=== PATIENT | female | born 1980 | race Caucasian/White ===

== ENCOUNTER → 2018-07-29 | Outpatient (CLI) | payer OTHER ==
--- NOTE | 2018-07-30 11:21 | MM ---
Reason for exam: clinical finding. Last mammogram was performed 3 years and 9 months ago. History: Family history of breast cancer in maternal aunt at age 48, breast cancer in aunt at age 50, and breast cancer in aunt at age 60. Benign excisional biopsy of the left breast, 1995. Indicated problem(s): lump or thickening in the left breast. Physical Findings: Nurse did not find any significant physical abnormalities on exam. MG 3D Diag Mammo W/Cad RAZIA Bilateral CC and MLO view(s) were taken. Prior study comparison: October 19, 2014, bilateral MG screening mammo w CAD. March 25, 2013, CAD bilateral diagnostic mammogram. The breast tissue is heterogeneously dense. This may lower the sensitivity of mammography. There is no discrete abnormality. These results were verbally communicated with the patient and result sheet given to the patient on 07/29/18. ASSESSMENT: Negative, BI-RAD 1 RECOMMENDATION: Routine screening mammogram of both breasts in 1 year.
== END | disposition home or self-care (01) ==
LOC: RADMAMWWP 13:47
PROVIDERS: ATTEND Obstetrics & Gynecology
DX: N64.4 Mastodynia (principal); N63.0 Unspecified lump in unspecified breast
CPT/HCPCS: 77066; G0279; 77062

== ENCOUNTER → 2018-10-19 | Outpatient (CLI) | payer OTHER ==
--- NOTE | 2018-10-19 12:24 | CONS ---
CONSULTATION CONSULTATION NOTE: Sleep apnea. 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 The patient works in [employer] and [employer] in [place]. She has been feeling more fatigued over the years and she had become sleepy and it has been going on for the past 5 years. She is coming in for further investigation upon request of her primary care physician. Upon further discussion, the patient has a very irregular sleep-wake cycle. The patient works different shifts and she typically works 12 hour shifts, between 7 am and 7 pm and 11 am and 11 pm and 3 p.m. until 3 am. Her shifts vary and they are quite erratic and she takes the shifts as they come. This has affected her sleep quality to the point where the patient sometimes unable to generate more than 4-6 hours of sleep and she has become progressively more sleep insufficient. This has affected her mental health and she is feeling more withdrawn and somewhat anxious and depressed and the patient had seen her primary care physician and started on Wellbutrin approximately 2 months ago. No crying episodes. She does not feel quite sad and Wellbutrin has helped her with her symptoms of depression. She has gained weight in order of 25-30 pounds and the patient is concerned about the obstructive sleep apnea, in addition. She has been told to have some snoring, yet no witnessed apneas. No history of any falling asleep on the job or falling asleep while driving or performing the routine day-to-day activities. Her current [place] score is at 4. She denies waking up in the middle of the night for any reason. Denies having any grinding of the teeth. No restlessness of the lower extremities or any symptoms of restless legs syndrome. No reported nighttime panic attacks. She is having more and more difficulty with memory and concentration and she is feeling tired all the time. No other metabolic disease or disorders such as thyroid disease or any other chronic liver or kidney disease. No head trauma. No history of meningitis, no history of substance abuse. She drinks 1 or 2 cups of coffee in the morning. No history of alcoholism. PAST MEDICAL HISTORY: Depression. PAST SURGICAL HISTORY: Hysterectomy, pilonidal cyst removal, LEEP procedure, sinus surgery and D and C. DRUG ALLERGIES: MAGNESIUM SULFATE, CLINDAMYCIN, LEVAQUIN. OUTPATIENT MEDICATION: Include Wellbutrin XL 300 mg. SOCIAL HISTORY: The patient is a nonsmoker. No history of alcohol. No history of IV drugs. FAMILY HISTORY: Negative for sleep apnea. The patient has 2 kids at the age of 9 and 14. Diabetes mellitus runs in the family. His father and grandparents have diabetes mellitus type 2. REVIEW OF SYSTEMS: A 14-point review of system was done. Positive findings are mentioned in history of present illness. Denies choking or gasping for air in the middle of the night. No restlessness in the lower extremities. No heartburn, no sleep paralysis, no hallucinations, no cataplexy. No evidence of noted of any motor vehicle accident because of feeling drowsy or sleepy. No nighttime chest pain shortness of breath. Heartburn no nausea vomiting, or diarrhea. No dysuria, frequency or urgency. No grinding of the teeth. No claustrophobia, no sexual dysfunction. PHYSICAL EXAMINATION: BP is 117/71, pulse 78, respirations 14, temperature 98.9, saturation 96% on room air. Height is 5, 5, weight is 176, neck size 14 [place] score is 4, BMI is 29.2. GENERAL APPEARANCE: Calm comfortable, no acute distress. HEENT: Head is atraumatic, normocephalic. NECK: Supple. There is no JVD. No goiter. No neck masses. Mallampati class 2. LUNGS: Clear to auscultation. HEART: Sounds regular rate and rhythm. Normal S1, S2. No S3, S4. No murmurs. ABDOMEN: Soft, nontender. No organomegaly. EXTREMITIES: No edema. No cyanosis or clubbing. SKIN: Negative for any wounds or ulceration. IMPRESSION: 1. Insufficient sleep syndrome. Probably contributing to her chronic fatigue and sleepiness. Obstructive sleep apnea. is possible but felt to be less likely. 2. Poor sleep hygiene measures. 3. Chronic fatigue and some limited sleepiness with an [place] score of 4. 4. Irregular work shifts as discussed above in the history of present illness/swing shift work. 5. History of depression, currently on Wellbutrin. PLAN: Would investigate the patient's sleep quality further. Will set her up for a screening polysomnogram. Will rule out obstructive sleep apnea accordingly. Will decide if any treatment is needed from the sleep apnea standpoint as present. Meanwhile, she is to implement good sleep hygiene measures. She needs to regulate her work schedule trying to work regular schedules instead of swing shift. Continue Wellbutrin. Will continue to follow. MMODL / IJN: [id number] /
== END | disposition home or self-care (01) ==
CPT/HCPCS: 99211

== ENCOUNTER → 2019-01-06 | Outpatient (CLI) | payer OTHER ==
--- NOTE | 2019-01-06 11:40 | US ---
EXAMINATION TYPE: US thyroid st tissue head/neck DATE OF EXAM: 01/06/2019 COMPARISON: NONE CLINICAL HISTORY: E04.1 SINGLE THYROID NODULE. GLAND SIZE: Right Lobe: 5.9 x 1.7 x 1.7 cm Overall Parenchyma: homogenous Left Lobe: 5.3 x 1.6 x 1.5 cm Overall Parenchyma: homogeneous Isthmus Thickness: 0.1 cm NODULES RIGHT: # of nodules measured on right: 1 1. 1.3 X 0.6 x 0.9 cm isoechoic mixed nodule at the mid pole with well-defined margins. This nodul e is wider than tall and shows intranodular vascularity. No prior LEFT: # of nodules measured on left: 1 1. 1.1 X 0.5 x 1.0 cm isoechoic mixed nodule at the mid pole with well-defined margins. This nodul e is wider than tall and shows intranodular vascularity. No prior ISTHMUS: # of nodules measured in the isthmus: 0 Bilateral neck scanned, no evidence of lymphadenopathy. IMPRESSION: Enlarged thyroid gland with bilateral thyroid nodules measuring up to 1.3 cm on the right and 1.1 cm on the left. These do not yet meet criteria for fine-needle aspiration and follow-up thyr oid ultrasound in 12 months would be recommended.
[2019-01-06 11:59] LABS: T4, Free (Free Thyroxine) 0.98 ng/dL (0.78-2.19)
[2019-01-06 16:03] LABS: DHEA Sulfate 473.9 ug/dL (26.0-430.0); Estradiol 66.4 pg/mL; Follicle Stimulating Hormone 4.2 mIU/mL
== END | disposition home or self-care (01) ==
LOC: RADUSWWP 10:35
PROVIDERS: ATTEND Family Medicine
DX: E04.2 Nontoxic multinodular goiter (principal); R53.82 Chronic fatigue, unspecified
CPT/HCPCS: 36415; 76536; 82040; 82627; 82670; 83001; 83002; 84270; 84403; 84439; 84443

== ENCOUNTER → 2019-01-14 | Outpatient (CLI) | payer OTHER ==
--- NOTE | 2019-01-14 10:09 | US ---
EXAMINATION TYPE: US transvaginal DATE OF EXAM: 01/14/2019 COMPARISON: US 2010 CLINICAL HISTORY: E28.1 Androgen excess. TECHNIQUE: Transvaginal (TV). Date of LMP: hysterectomy 8 years ago EXAM MEASUREMENTS: Uterus: Surgically absent Endometrial Stripe: Surgically absent Right Ovary: 3.4 x 1.9 x 2.5 cm Left Ovary: 3.3 x 2.1 x 1.9 cm 1. Uterus: Surgically absent 2. Endometrium: Surgically absent 3. Right Ovary: wnl 4. Left Ovary: wnl 5. Bilateral Adnexa: wnl 6. Posterior cul-de-sac: wnl Ovaries within normal limits in size with scattered peripheral follicles. IMPRESSION: Posthysterectomy changes. No suspicious adnexal masses.
== END | disposition home or self-care (01) ==
LOC: RADUSWWP 09:43
PROVIDERS: ATTEND Family Medicine
DX: E28.1 Androgen excess (principal); Z90.710 Acquired absence of both cervix and uterus
CPT/HCPCS: 76830

== ENCOUNTER → 2019-01-14 | Outpatient (CLI) | payer OTHER | END | disposition home or self-care (01) | LOC: LABWHC1 09:32 | PROVIDERS: ATTEND Family Medicine | DX: E28.1 Androgen excess (principal) | CPT/HCPCS: 36415; 84146 ==

== ENCOUNTER → 2020-07-24 | Outpatient (CLI) | payer OTHER ==
--- NOTE | 2020-07-25 07:50 | US ---
EXAMINATION TYPE: US thyroid st tissue head/neck DATE OF EXAM: 07/24/2020 COMPARISON: US 01/06/2019 CLINICAL HISTORY: E04.2 Goiter. Difficulty swallowing is noted by patient GLAND SIZE: Right Lobe: 5.9 x 2.3 x 1.8 cm Overall Parenchyma: homogenous Left Lobe: 4.8 x 1.7 x 1.6 cm Overall Parenchyma: homogeneous Isthmus Thickness: 0.1 cm NODULES RIGHT: # of nodules measured on right: 3 1. 1.7 X 1.2 x 1.0 cm, mid pole, mixed cystic and solid, isoechoic nodule, which is wider than tall , with smooth margins, without echogenic foci. Prior size: 1.3 x 0.9 x 0.6 cm 2. 0.5 X 0.5 x 0.5 cm, lower medial, mixed cystic and solid, isoechoic nodule, which is wide as is tall, with smooth margins, without echogenic foci. Prior size: not seen 3. 0.5 X 0.6 x 0.4 cm, lower lateral, solid or almost completely solid, hypoechoic nodule, which is wider than tall, with smooth margins, without echogenic foci. Prior size: not seen LEFT: # of nodules measured on left: 2 1. 0.3 X 0.3 x 0.2 cm, upper pole, mixed cystic and solid, hypoechoic nodule, which is wider than t all, with smooth margins, with echogenic foci. Prior size: not seen 2. 1.1 X 1.0 x 0.6 cm, mid pole, mixed cystic and solid, isoechoic nodule, which is wider than kim l, with irregular or lobular margins, without echogenic foci. Prior size: 1.1 x 1.0 x 0.5 cm ISTHMUS: # of nodules measured in the isthmus: 0 Bilateral neck scanned: no evidence of lymphadenopathy. IMPRESSION: 1. No thyroid glandular enlargement. 2. Stable nonspecific thyroid nodules.
== END | disposition home or self-care (01) ==
LOC: RADUSWWP 16:48
PROVIDERS: ATTEND Family Medicine
DX: E04.2 Nontoxic multinodular goiter (principal)
CPT/HCPCS: 76536

== ENCOUNTER → 2023-01-08 | Outpatient (CLI) | payer BC ==
--- NOTE | 2023-01-08 13:59 | P.SLEEP ---
History of Present Illness DATE: 01/08/2023 CONSULTATION/NEW PATIENT EVALUATION HISTORY OF PRESENT ILLNESS/SLEEP-WAKE EVALUATION: 42-year-old lady had been ev aluated in the sleep center for possible obstructive sleep apnea hypopnea syndrome. SLEEP SCHEDULE: Usually sleep schedule 10 PM to 6 AM on weekdays and from 10 PM to 7 AM on weekend. FALLING ASLEEP: Patient does have problems sometimes with falling asleep, although no TV in bedroom. DURING SLEEP: Patient sleeps in different positions with snoring and awakenings from sleep 3 times with one episode of nocturia. No history of hypnogogical hallucinations, sleep paralysis, or cataplexy. DURING THE DAY/WAKE STATE: In the morning patient wake up tired. [place] sleepiness scale is 4. Usually patient doesn't take naps. PAST MEDICAL HISTORY: Hyperfunction of adrenal gland, thyroid nodules, history of depression, history of sinus problems. PAST SURGICAL HISTORY: Partial hysterectomy. MEDICATIONS: Aldactone 25 mg twice a day, metformin 500 mg twice a day, Wellbutrin 300 mg once a day. SOCIAL HISTORY: Negative for smoking, alcohol consumption occasional. FAMILY HISTORY: Diabetes, cancer. REVIEW OF SYSTEMS: Snoring, multiple awakenings from sleep. No fevers. No double vision. No recent chest pain. No shortness of breath. No abdominal pain. No bleeding episodes. No blood in urine. No seizure episodes. PHYSICAL EXAMINATION: GENERAL: A pleasant patient without any distress. VITAL SIGNS: BP 127/84, HR 83, RR 18, weight 204.0 pounds, height 5 foot 5 inches, body mass index 33.9. HEENT: PERRLA, EOMI. Evaluation of oropharynx showed tongue protrudes midline, low position of soft palate Mallampati 4. NECK: Supple. No JVD. Thyroid is not palpable. 15-3/4 inches in circumference. LUNGS: Clear to percussion and to auscultation. Good air exchange. No wheezing or rhonchi. HEART: S1, S2 regular. No murmurs, gallops or rubs. ABDOMEN: Soft and nontender. Bowel sounds are present. No organomegaly appreciated. EXTREMITIES: No clubbing or cyanosis. 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 Cranial nerves 2 to 7 intact. There is no fasciculation or atrophy noted. No focal deficits observed. ASSESSMENT: 1. Snoring, multiple awakenings from sleep, extremely low position of soft palate Mallampati 4. Obstructive sleep apnea hypopnea syndrome. 2. Mild obesity, BMI 33.9. 3. History of depression. 4. History of thyroid nodule. 5 history of adrenal hyperfunction. 6 . Status post partial hysterectomy. 7. Status post sinus surgery. PLAN: 1. Polysomnography for evaluation of patient's breathing during sleep. 2. Following plan after reading sleep study 3. No driving if feel . Patient is aware of civil and criminal liability for unsafe driving. 5. Sleep hygiene with regular sleep time for at least 7.5-8 hours. 6. Watching and losing weight. Thank you very much for referring this patient for consultation. Sincerely, Alex Winston MD, PhD, FAASM. Diplomat of [employer], Sleep Medicine Board by [employer] Manager [employer] [facility] [place] [facility] Note - Sleep Note Sleep Note: Temperature: Pulse Rate: Respiratory Rate: Blood Pressure: SpO2: Height: Weight: BMI: Neck Circumference:
== END ==
LOC: 3 N SLEEP 13:25
PROVIDERS: ATTEND Internal Medicine
DX: G47.33 Obstructive sleep apnea (adult) (pediatric) (principal); E66.9 Obesity, unspecified; F32.A Depression, unspecified; E27.8 Other specified disorders of adrenal gland; E04.1 Nontoxic single thyroid nodule; Z98.890 Other specified postprocedural states; Z68.33 Body mass index [BMI] 33.0-33.9, adult; Z90.711 Acquired absence of uterus with remaining cervical stump
CPT/HCPCS: 99211

== ENCOUNTER → 2023-03-10 | Outpatient (CLI) | payer BC ==
--- NOTE | 2023-03-11 12:19 | P.PCN ---
Description of Procedure: CLINICAL: A home sleep apnea test has been done for confirmation of possible obstructive sleep apnea-hypopnea syndrome. DESCRIPTION OF PROCEDURE: RESULTS: Recording time was 6 hours 51 minutes. Evaluation time was 6 hours 40 minutes. Evaluation time is sufficient for making conclusion about results of the test. Raw data of sleep recording has been reviewed and is adequate. Respiratory channel showed 7 apneas and 9 hypopneas. Apnea-hypopnea index was 2.4 per hour.. Pulse rate in the range between minimum 55, maximum 100, average 75 by computer calculation. Lowest desaturation was []%. IMPRESSION: 1. No significant respiratory abnormalities have been documented during the sleep study. 2. Snoring have been documented during the sleep study. Please see other impressions from consultation. PLAN: 1. I will see patient for follow-up visit to explain results of the test and recommendations. 2. Patient may consider evaluation by ear nose and throat physician for treatment of snoring. 3. Watching and losing weight. 4. Sleep hygiene with regular time in bed for at least 8 hours. 5. No driving if feeling any sleepiness. Thank you very much for allowing me to participate in the management of your patient. Sincerely, Alex Winston MD, PhD, FAASM Diplomat of [place] [employer] Sleep Medicine Board of [place] [employer] [facility] [place]
== END ==
LOC: 3 N SLEEP 16:46
PROVIDERS: ATTEND Internal Medicine
DX: G47.33 Obstructive sleep apnea (adult) (pediatric) (principal)

== ENCOUNTER 2024-07-29 10:30 | Emergency (ER) | payer BC ==
[2024-07-29 10:43] VITALS: RESP 16; TEMP 98.1
--- NOTE | 2024-07-29 11:40 | ED ---
Dizziness HPI - General Chief Complaint: Dizziness Stated Complaint: Dizziness Time Seen by Provider: 07/29/24 10:52 Source: patient, RN notes reviewed Mode of arrival: ambulatory Limitations: no limitations - History of Present Illness Initial Comments: This is a 44-year-old female who presents to the emergency department for dizziness. States that it has been ongoing for the last week. She went to [facility] when this first started. They did lab work and a CT scan of the brain as well as a chest x-ray which were all normal. They treated her for vertigo and she felt like symptoms improved to some extent while she was there. She was discharged with a prescription for Antivert. States that since going home symptoms have not gotten any better. She feels dizzy almost constantly, has blurry vision, and nausea. States that she is unable to work or drive as a result of her symptoms. She is still taking Antivert 4 times a day, but has not gotten any relief. She followed up with her PCP today who advised she come here for an MRI. MD Complaint: dizziness, difficulty walking - Related Data Home Medications Medication Instructions Recorded Confirmed Meclizine [Antivert] 25 mg PO QID 07/29/24 07/29/24 Ondansetron Odt [Zofran Odt] 4 mg PO Q8HR PRN 07/29/24 07/29/24 Previous Rx's Medication Instructions Recorded Metoclopramide [Reglan] 10 mg PO Q6H PRN #30 tab 07/29/24 Scopolamine [Scopolamine 1 MG/72 1 patch TRANSDERM Q72H PRN #8 patch 07/29/24 HR patch] diazePAM [Valium] 5 mg PO TID PRN 3 Days #9 tab 07/29/24 Allergies Allergy/AdvReac Type Severity Reaction Status Date / Time clindamycin Allergy Unknown Verified 07/29/24 13:25 levofloxacin [From Levaquin] Allergy Unknown Verified 07/29/24 13:25 magnesium sulfate Allergy Unknown Verified 07/29/24 13:25 Review of Systems ROS Statement: Those systems with pertinent positive or pertinent negative responses have been documented in the HPI. ROS Other: All systems not noted in ROS Statement are negative. Past Medical History Past Medical History: No Reported History History of Any Multi-Drug Resistant Organisms: None Reported Past Surgical History: Hysterectomy Past Psychological History: No Psychological Hx Reported Smoking Status: Never smoker Past Alcohol Use History: None Reported Past Drug Use History: None Reported General Exam Limitations: no limitations General appearance: alert, in no apparent distress Head exam: Present: atraumatic, normocephalic, normal inspection Eye exam: Present: normal appearance, PERRL, EOMI. Absent: scleral icterus, conjunctival injection, periorbital swelling Respiratory exam: Present: normal lung sounds bilaterally. Absent: respiratory distress, wheezes, rales, rhonchi, stridor Cardiovascular Exam: Present: regular rate, normal rhythm Neurological exam: Present: alert, oriented X3, CN II-XII intact Expanded Cerebellar function: Finger to Nose: Normal, Heel to Hua: Normal, Romberg: Normal Upper motor neuron: Pronator Drift: Normal, Sensory Extinction: Normal Motor strength exam: RUE: 5, LUE: 5, RLE: 5, LLE: 5 Psychiatric exam: Present: normal affect, normal mood Skin exam: Present: warm, dry, intact, normal color. Absent: rash Course Vital Signs 07/29/24 07/29/24 07/29/24 10:39 14:43 17:00 Temperature 98.1 F 98.1 F Pulse Rate 96 78 74 Respiratory 16 16 16 Rate Blood Pressure 127/87 127/86 110/59 O2 Sat by Pulse 97 98 98 Oximetry Medical Decision Making - Medical Decision Making This is a 44-year-old female who presents to the emergency department for [facility]. Was pt. sent in by a medical professional or institution? @ -No Did you speak to anyone other than the patient for history? @ -No Did you review nursing and triage notes? @ -Yes, and I agree, it is accurate with regards to the patient's symptoms. Were old charts reviewed? @ -No Differential Diagnosis? @ -Differential Dizziness: Benign paroxysmal positional Vertigo, Meniere's disease, otitis media, acoustic neuroma, vertebrobasilar insufficiency, cerebellar stroke, encephalitis, hypovolemic, arrhythmia, coronary artery syndrome, anemia, this is not meant to be an all-inclusive list EKG interpreted by me (3pts min.)? @ -EKG interpreted by me demonstrating the following: Sinus rhythm. Ventricular rate 94 bpm, VT interval 147 ms, QRS duration 89 ms, QTc 406 ms. X-rays interpreted by me (1pt min.)? @ -Not obtained CT interpreted by me (1pt min.)? @ -CT scan of the brain obtained. My interpretation identifies no acute intracranial hemorrhage. CTA of the head and neck obtained. My interpretation identifies no signs of an aneurysm. U/S interpreted by me (1pt. min.)? @ -Not obtained What testing was considered but not performed? (CT, X-rays, U/S, labs)? Why? @ -None What meds were considered but not given? Why? @ -None Did you discuss the management of the patient with other professionals? @ -No Did you reconcile home meds? @ -No Was smoking cessation discussed for >3mins.? @ -No Was critical care preformed (if so, how long)? @ -No Were there social determinants of health that impacted care today? How? (Homelessness, low income, unemployed, alcoholism, drug addiction, transportation, low edu. Level, literacy, decrease access to med. care, long term, rehab)? @ -No Was there de-escalation of care discussed even if they declined? (Discuss DNR or withdrawal of care, Hospice)? @ -No What co-morbidities impacted this encounter? (DM, HTN, Smoking, COPD, CAD, Cancer, CVA, Hep., AIDS, mental health diagnosis, sleep apnea, morbid obesity)? @ -None Was patient admitted / discharged? @ -Discharged. Lab work demonstrates mild leukocytosis with a white blood cell count of 10.46 and is otherwise unremarkable. CT scan of the brain and CTA of the head and neck obtained revealing no acute process. Nursing staff spoke with the MRI department who advised that they were completely booked for the next 2 to 3 days. This was discussed with the patient. Advised that she would have to remain in the hospital for symptomatic management in order to get the MRI in that timeframe. However, patient states that she would much rather go home. We did try multiple medications with the patient and were able to get her symptoms to a tolerable level. She requested discharge home at that point. Reglan, scopolamine patches, and Valium prescribed for further symptomatic management, a s they seemed to offer the most relief in the emergency department. She does have a new prescription for Antivert that is ready to be picked up as well. Also discussed with the half somersault maneuver by Dr. Cierra Oden as an additional treatment option. Advised she discuss the MRI with her PCP to see if it can be ordered outpatient. Patient discharged home in stable condition with strict return parameters. Case discussed with ED attending Dr. Anne. Return precautions reviewed in depth, the patient is instructed to return to the emergency department with any new, worsening, or concerning symptoms. Patient verbalized understanding. Undiagnosed new problem with uncertain prognosis? @ -None Drug Therapy requiring intensive monitoring for toxicity (Heparin, Nitro, Insulin, Cardizem)? @ -None Were any procedures done? @ -None Diagnosis/symptom? @ -BPPV Acute, or Chronic, or Acute on Chronic? @ -Acute Uncomplicated (without systemic symptoms) or Complicated (systemic symptoms)? @ -Uncomplicated Side effects of treatment? @ -None Exacerbation, Progression, or Severe Exacerbation] @ -Not applicable Poses a threat to life or bodily function? @ -Yes, it is affecting her ability to drive and walk - Lab Data Result diagrams: 07/29/24 11:55 07/29/24 11:55 Lab Results 07/29/24 07/29/24 07/29/24 Range/Units 11:55 11:55 11:55 WBC 10.46 H (4.50-10.00) 10*3/uL RBC 5.16 (4.10-5.20) 10*6/uL Hgb 15.3 H (12.0-15.0) g/dL Hct 45.0 (37.2-46.3) % MCV 87.2 (80.0-97.0) fL MCH 29.7 (27.0-32.0) pg MCHC 34.0 (32.0-37.0) g/dL Plt Count 373 (140-440) 10*3/uL MPV 9.4 L (9.5-12.2) fL Immature Gran % (Auto) 0.2 % Neutrophils % 61.2 % Lymphocytes % 28.6 % Monocytes % 7.6 % Eosinophils % 2.1 % Basophils % 0.3 % Immature Gran # 0.02 (0.00-0.04) 10*3/uL Neutrophils # 6.40 (1.80-7.70) 10*3/uL Lymphocytes # 2.99 (0.90-5.00) 10*3/uL Monocytes # 0.80 (0.20-1.00) 10*3/uL Eosinophils # 0.22 (0.04-0.35) 10*3/uL Basophils # 0.03 (0.00-0.10) 10*3/uL PT 10.7 (10.0-12.5) sec INR 1.0 (<1.2) Sodium 139 (137-145) mmol/L Potassium 4.1 (3.5-5.1) mmol/L Chloride 101 (98-107) mmol/L Carbon Dioxide 27 (22-30) mmol/L Anion Gap 11 mmol/L BUN 11 (7-17) mg/dL Creatinine 0.71 (0.52-1.04) mg/dL Est GFR (CKD-EPI)AfAm >90 (>60 ml/min/1.73 sqM) Est GFR (CKD-EPI)NonAf >90 (>60 ml/min/1.73 sqM) Glucose 92 (74-99) mg/dL Calcium 10.2 (8.4-10.2) mg/dL Total Bilirubin 0.3 (0.2-1.3) mg/dL AST 19 (14-36) U/L ALT 21 (4-34) U/L Alkaline Phosphatase 91 (38-126) U/L Troponin I (0.000-0.034) ng/mL Total Protein 7.7 (6.3-8.2) g/dL Albumin 4.4 (3.5-5.0) g/dL TSH 1.070 (0.465-4.680) mIU/L 07/29/24 Range/Units 11:55 WBC (4.50-10.00) 10*3/uL RBC (4.10-5.20) 10*6/uL Hgb (12.0-15.0) g/dL Hct (37.2-46.3) % MCV (80.0-97.0) fL MCH (27.0-32.0) pg MCHC (32.0-37.0) g/dL Plt Count (140-440) 10*3/uL MPV (9.5-12.2) fL Immature Gran % (Auto) % Neutrophils % % Lymphocytes % % Monocytes % % Eosinophils % % Basophils % % Immature Gran # (0.00-0.04) 10*3/uL Neutrophils # (1.80-7.70) 10*3/uL Lymphocytes # (0.90-5.00) 10*3/uL Monocytes # (0.20-1.00) 10*3/uL Eosinophils # (0.04-0.35) 10*3/uL Basophils # (0.00-0.10) 10*3/uL PT (10.0-12.5) sec INR (<1.2) Sodium (137-145) mmol/L Potassium (3.5-5.1) mmol/L Chloride (98-107) mmol/L Carbon Dioxide (22-30) mmol/L Anion Gap mmol/L BUN (7-17) mg/dL Creatinine (0.52-1.04) mg/dL Est GFR (CKD-EPI)AfAm (>60 ml/min/1.73 sqM) Est GFR (CKD-EPI)NonAf (>60 ml/min/1.73 sqM) Glucose (74-99) mg/dL Calcium (8.4-10.2) mg/dL Total Bilirubin (0.2-1.3) mg/dL AST (14-36) U/L ALT (4-34) U/L Alkaline Phosphatase (38-126) U/L Troponin I <0.012 (0.000-0.034) ng/mL Total Protein (6.3-8.2) g/dL Albumin (3.5-5.0) g/dL TSH (0.465-4.680) mIU/L - Radiology Data Radiology results: report reviewed, image reviewed Disposition Clinical Impression: BPPV (benign paroxysmal positional vertigo) Disposition: HOME SELF-CARE Instructions (If sedation given, give patient instructions): Vertigo (ED), Benign Paroxysmal Positional Vertigo (ED) Additional Instructions: Return to the emergency department with any new, worsening, or concerning symptoms. You can take the Reglan up to every 6 hours. This can help with both nausea and dizziness. The Valium can be taken 3-4 times a day to help with the dizziness as well. You can also apply the scopolamine patches every 3 days. Continue taking the Antivert 4 times a day if needed as well. You can also look up the half somersault maneuver by Dr. Cierra Oden online. This is a potential treatment option that they offer at home. Follow-up with your primary care provider for reevaluation and see if she can put in the order for the MRI to be done stat. Prescriptions: Metoclopramide [Reglan] 10 mg PO Q6H PRN #30 tab PRN Reason: Nausea And Vomiting Scopolamine [Scopolamine 1 MG/72 HR patch] 1 patch TRANSDERM Q72H PRN #8 patch PRN Reason: Vertigo diazePAM [Valium] 5 mg PO TID PRN 3 Days #9 tab PRN Reason: Vertigo Is patient prescribed a controlled substance at d/c from ED?: Yes When asked, does pt state using other controlled substances?: No If prescribed controlled substance>3 days was MAPS reviewed?: Prescribed <3 Days Referrals: Audrey Beckman MD [Primary Care Provider] - 1-2 days Time of Disposition: 16:34
[2024-07-29] MEDS: diphenhydrAMINE 50 MG/ML 1 ML VIAL IVP STA (12:04)
[2024-07-29] MEDS: ONDANSETRON 4 MG/2 ML VIAL IVP STA (12:04)
[2024-07-29] MEDS: SCOPOLAMINE 1 MG/72 HR PATCH TRANSDERM STA (12:04)
[2024-07-29] MEDS: SODIUM CHLORIDE 0.9% 1,000 ML IV STA (12:05)
[2024-07-29] MEDS: MECLIZINE 12.5 MG TAB PO STA ×2 (12:09→14:26)
[2024-07-29 12:11] LABS: Basophils # (A) 0.03 10*3/uL (0.00-0.10); Basophils % (A) 0.3 %; Eosinophils # (A) 0.22 10*3/uL (0.04-0.35); Eosinophils % (A) 2.1 %; HGB 15.3 g/dL (12.0-15.0); Lymphocytes # (A) 2.99 10*3/uL (0.90-5.00); Lymphocytes % (A) 28.6 %; MCH 29.7 pg (27.0-32.0); MCV 87.2 fL (80.0-97.0); Mean Platelet Volume 9.4 fL (9.5-12.2); Monocytes % (A) 7.6 %; Neutrophils % (A) 61.2 %; Platelet Count 373 10*3/uL (140-440); RBC 5.16 10*6/uL (4.10-5.20); RDW 12.9 % (11.5-14.5); WBC 10.46 10*3/uL (4.50-10.00)
[2024-07-29 12:19] LABS: Prothrombin Time 10.7 sec (10.0-12.5)
[2024-07-29 12:20] LABS: ALT 21 U/L (4-34); AST 19 U/L (14-36); African American GFR (CKD) >90 (>60 ml/min/1.73 sqM); Albumin 4.4 g/dL (3.5-5.0); Alkaline Phosphatase 91 U/L (38-126); Anion Gap 11 mmol/L; Blood Urea Nitrogen 11 mg/dL (7-17); Calcium 10.2 mg/dL (8.4-10.2); Carbon Dioxide 27 mmol/L (22-30); Chloride 101 mmol/L (98-107); Glucose 92 mg/dL (74-99); Non-African American GFR(CKD) >90 (>60 ml/min/1.73 sqM); Potassium 4.1 mmol/L (3.5-5.1); Sodium 139 mmol/L (137-145); Total Bilirubin 0.3 mg/dL (0.2-1.3); Total Protein 7.7 g/dL (6.3-8.2)
--- NOTE | 2024-07-29 12:52 | CT ---
EXAMINATION TYPE: CT brain wo con CT DLP: 1640.1 mGycm, Automated exposure control for dose reduction was used. DATE OF EXAM: 07/29/2024 12:46 PM COMPARISON: None. CLINICAL INDICATION:Female, 44 years old with history of Dizziness, visual changes, Vertigo x 1 week. TECHNIQUE: Brain: Multiple axial CT images of the brain were obtained without IV contrast. . Coronal and sagitta l reformats reviewed. FINDINGS: Brain: Extra-axial spaces: No abnormal extra-axial fluid collections. Ventricular system: Within normal limits Cerebral parenchyma: No acute intraparenchymal hemorrhage or mass effect. The durand-white junction is well differentiated. Cerebellum: Unremarkable. Mass effect: No evidence of midline shift. Intracranial vasculature: unremarkable Soft tissues: Normal. Calvarium/osseous structures: No depressed skull fracture. Paranasal sinuses and mastoid air cells: The mastoid air cells are clear. Minimal scattered thickenin g of the paranasal sinuses. Suggested postsurgical changes from bilateral maxillary antrostomy and et hmoidectomies. Cerumen within the bilateral external auditory canals with left greater than right. Visualized orbits: Orbital contents are intact. IMPRESSION: No acute intracranial process. [facility], , 07/29/2024 12:50 PM
--- NOTE | 2024-07-29 12:55 | CT ---
EXAMINATION TYPE: CT angio head neck CT DLP: 1640.1 mGycm, Automated exposure control for dose reduction was used. DATE OF EXAM: 07/29/2024 12:46 PM COMPARISON: CT brain of the same date, thyroid ultrasound 07/24/2020. CLINICAL INDICATION:Female, 44 years old with history of Dizziness, blurry vision; PHH, Vertigo x 1 w [place]. TECHNIQUE: Axially acquired helical CT angiogram of the head and neck was obtained with contrast util izing 75 cc of [id number]-[id number] administered intravenously. Axial images are supplemented with 3D reconstru ctions which were post-processed at an independent workstation. NASCET criteria used. MIP imaging performed on a separate workstation and submitted for review. FINDINGS: CTA HEAD: No evidence of acute intracranial hemorrhage, mass effect, or midline shift. The ventricles, sulci, a nd cisterns are unremarkable. The visualized portions of the internal carotid arteries, middle cerebral arteries, anterior cerebral arteries, and posterior cerebral arteries are patent. The basilar and vertebral arteries are patent. CTA NECK: Right Carotid System: The common carotid artery and external carotid artery are patent. The carotid bifurcation demonstrate s no evidence of hemodynamically significant stenosis. The remaining portions of the internal carotid artery demonstrate normal size without significant narrowing. Left Carotid System: The common carotid artery and external carotid artery are patent. The carotid bifurcation demonstrate s no evidence of hemodynamically significant stenosis. The remaining portions of the internal carotid artery demonstrate normal size without significant narrowing. Vertebral arteries are patent without evidence hemodynamically significant stenosis. There is a three-vessel aortic arch. The origins of the great vessels are patent. No evidence of hemo dynamically significant stenosis. Multinodular thyroid gland with largest nodule within the right thyroid lobe measuring up to 1.4 cm c orresponding to prior ultrasound. IMPRESSION: 1. No evidence of dissection of the cervical internal carotid arteries or vertebral arteries or any e vidence of significant stenosis at the carotid bifurcations. 2. No evidence of high-grade stenosis or intracranial aneurysm. [facility], , 07/29/2024 12:52 PM
[2024-07-29] MEDS: DEXAMETHASONE SOD PHOSPHATE 10 MG/ML 1 ML VIAL IVP STA (14:27)
[2024-07-29] MEDS: METOCLOPRAMIDE 5 MG/ML 2 ML VIAL IVP STA (15:26)
[2024-07-29 17:12] VITALS: BP 110/59; PULSE 74
== END 2024-07-29 17:00 | disposition home or self-care (01) ==
LOC: EC 10:30
DX: H81.10 Benign paroxysmal vertigo, unspecified ear (principal); Z88.1 Allergy status to other antibiotic agents; Z88.8 Allergy status to other drugs, medicaments and biological substances
CPT/HCPCS: 36415; 93005; 80053; 84443; 84484; 85025; 85610; 70496; 70450; 70498; 99284; 96374; 96375; 96376; 96361; J1200; J1100; J2765; J3360; J2405; Q9967